=== PATIENT | female | born 1960 | race Hispanic/Latino ===

== ENCOUNTER 2016-11-29 14:35 | Emergency (ER) | payer OTHER ==
[2016-11-29 14:36] VITALS: BMI 33.0
[2016-11-29 14:56] VITALS: RESP 18; TEMP 97.7
--- NOTE | 2016-11-29 15:05 | ED PDOC ---
"Arrival/HPI <Perla Jaimes - Last Filed: 11/29/16 21:17> - General Historian: Patient <Shon Reece - Last Filed: 12/02/16 01:19> - General Chief Complaint: Back Pain Time Seen by Provider: 11/29/16 14:56 - History of Present Illness Narrative History of Present Illness (Text): 11/29/16 14:57 55 y/o female, pmh including htn/breast cancer, post menopausal, allergic to macrolide and flagyl, c/o lower back pain x 3 days. Pt. has lower back pain, aggravated by movement, associated with the suprapubic pressure, +urinary frequency/urgency, no vaginal bleeding or discharge, nonradiating back pain, no urinary or bowel incontinence or retention, no flank pain, no fever or chills, no nausea or vomiting, no rash, no other medical or psychological complaints. (Shon Reece) Past Medical History - Provider Review Nursing Documentation Reviewed: Yes - Infectious Disease Hx of Infectious Diseases: None - Tetanus Immunization Tetanus Immunization: Unknown - Cardiac Hx Cardiac Disorders: Yes (mitral valve regurgitation) Hx Heart Murmur: Yes Hx Hypertension: Yes - Neurological Hx Paralysis: No - Hematological/Oncological Hx Cancer: Yes (Right Breast) - Musculoskeletal/Rheumatological Hx Falls: No - Psychiatric Hx Anxiety: Yes Hx Substance Use: No - Surgical History Hx Appendectomy: Yes - Anesthesia Hx Anesthesia Reactions: No Hx Malignant Hyperthermia: No - Suicidal Assessment Feels Threatened In Home Enviroment: No <Shon Reece - Last Filed: 12/02/16 01:19> Family/Social History - Physician Review Nursing Documentation Reviewed: Yes Family/Social History: Unknown Family HX Smoking Status: Former Smoker Hx Alcohol Use: No Hx Substance Use: No Hx Substance Use Treatment: No <Shon Reece - Last Filed: 12/02/16 01:19> Allergies/Home Meds <Perla Jaimes - Last Filed: 11/29/16 21:17> <Shon Reece - Last Filed: 12/02/16 01:19> Allergies/Adverse Reactions: Allergies azithromycin Allergy (Verified 11/29/16 14:56) ITCHING metronidazole [From Flagyl] Allergy (Verified 11/29/16 14:56) ANAPHYLAXIS Home Medications: Home Meds Medication Instructions Recorded Confirmed Alprazolam [Xanax] 0.25 mg PO QID 12/26/11 05/13/16 Valsartan [Diovan] 80 mg PO DAILY 05/23/12 05/13/16 Metoprolol Succinate 25 mg PO QAM 07/14/13 05/13/16 Loperamide Hydrochloride [Imodium] 3 cap PO DAILY 11/03/13 05/13/16 Review of Systems - Review of Systems Constitutional: absent: Fatigue, Fevers Eyes: absent: Vision Changes ENT: absent: Hearing Changes Respiratory: absent: SOB, Cough, Sputum Cardiovascular: absent: Chest Pain Gastrointestinal: absent: Abdominal Pain, Nausea, Vomiting Genitourinary Female: Frequency. absent: Dysuria, Vaginal Bleeding, Vaginal Discharge Musculoskeletal: Back Pain. absent: Arthralgias, Neck Pain, Joint Swelling, Myalgias Neurological: absent: Headache, Dizziness, Focal Weakness, Gait Changes, Speech Changes, Facial Droop, Disequilibrium, Seizure Psychiatric: absent: Anxiety, Depression, Suicidal Ideation <Shon Reece Q - Last Filed: 12/02/16 01:19> Physical Exam Vital Signs Reviewed: Yes Temperature: Afebrile Blood Pressure: Normal Pulse: Regular Respiratory Rate: Normal Appearance: Positive for: Well-Appearing, Non-Toxic, Comfortable Pain Distress: Moderate Mental Status: Positive for: Alert and Oriented X 3 - Systems Exam Head: Present: Atraumatic, Normocephalic Pupils: Present: PERRL Extroacular Muscles: Present: EOMI Conjunctiva: Present: Normal Mouth: Present: Moist Mucous Membranes Neck: Present: Normal Range of Motion Respiratory/Chest: Present: Clear to Auscultation, Good Air Exchange. No: Respiratory Distress, Accessory Muscle Use Cardiovascular: Present: Regular Rate and Rhythm, Normal S1, S2. No: Murmurs Abdomen: Present: Normal Bowel Sounds. No: Tenderness, Distention, Peritoneal Signs Back: Present: Normal Inspection, Paraspinal Tenderness (+ttp on the bilateral paraspinal lumbar region, no rash). No: CVA Tenderness, Midline Tenderness, Pain with Leg Raise Upper Extremity: Present: Normal Inspection. No: Cyanosis, Edema Lower Extremity: Present: Normal Inspection. No: Edema Neurological: Present: GCS=15, Speech Normal, Motor Func Grossly Intact, Gait Normal, Memory Normal Skin: Present: Warm, Dry, Normal Color. No: Rashes Psychiatric: Present: Alert, Oriented x 3, Normal Insight, Normal Concentration <Shon Reece - Last Filed: 12/02/16 01:19> Vital Signs Temp Pulse Resp BP Pulse Ox 11/29/16 21:15 64 18 123/84 100 11/29/16 18:36 62 18 130/69 99 11/29/16 16:35 64 18 132/76 99 11/29/16 15:30 62 18 134/81 99 11/29/16 14:50 97.7 F 62 18 134/81 97 Medical Decision Making <Perla Jaimes - Last Filed: 11/29/16 21:17> - Lab Interpretations I have reviewed the lab results: Yes Interpretation: No clinic. lab abnormalty - RAD Interpretation Crime Investigator Special Agent: Radiologist <Shon Reece - Last Filed: 12/02/16 01:19> ED Course and Treatment: 11/29/16 21:17 Case d/w Dr. Betancourt, who said to have the patient f/u within a week. (Perla Jaimes) 11/29/16 15:08 -labs/ua -IVF/toradol -there is no signs or symptoms of the cauda equina syndrome -observe and reassess 11/29/16 16:27 -Labs are non-significant -UA show no UTI but the patient stated that this feels like her usual UTI and stated that the initial UA is usually negative, I will cover with the macrobid. -Pt. stated that she is not sexually active and refused prophylatic treatment, gc/chlamydia test added. -Transvaginal sonogram and pelvic sonogram added. -CT abdomen/pelvic/Lumbar CT added to rule out lesion/mass due to the history of breast cancer. -Pain well control with the IV toradol, will add lidoderm 11/29/16 19:48 -Pt. refused transvaginal sonogram, no pelvic pain, stated that her bilateral ovaries has been damaged by the previous chemotherapy -Pending CT abdomen and pelvis. 11/29/16 20:40 -CT abdomen and pelvis show lytic lesion on the L1 and L4 with lytic lesion with endplate fracture which likely means metasis. I explained all labs/ sonogram results and CT abdomen/pelvis and Lumbar spine with the patient which I expressed my concerning about the spreading of the breast cancer which she will need to be follow up as soon as possible including PET scan. I offered the patient admission for inpatient work up but the patient declined which she request antibiotic for her UTI and outpatient follow up with her own pmd Dr. Noe. Dr. Jaimes awared of the case/labs and radiology studies including the discussion which he spoke to the patient as well. -Discharge home with lidoderm patch, pyridium, macrobid, bed rest, YOU NEED TO FOLLOW UP WITH YOUR OWN PMD AND ONCOLOGIST FOR PET SCAN INCLUDING FURTHER EVALUATION OF YOUR BACK PAIN within 2 days, return to the ER for any new or worsening signs or symptoms. (Shon Reece) - Lab Interpretations Microbiology Results: Microbiology Results 11/29/16 19:40 Urine Urine Culture - Final No Growth (<1,000 CFU/ML) Lab Results: 11/29/16 15:50 11/29/16 15:50 Lab Results 11/29/16 15:50: WBC 6.4, RBC 4.38, Hgb 13.3, Hct 39.1, MCV 89.3, MCH 30.4, MCHC 34.0, RDW 13.6, Plt Count 205, MPV 11.5 H, Gran % 56.7, Lymph % (Auto) 32.8, [place] % (Auto) 8.3 H, Eos % (Auto) 1.9, Baso % (Auto) 0.3, Gran # 3.63, Lymph # 2.1, [place] # 0.5, Eos # 0.1, Baso # 0.02, Sodium 139, Potassium 4.3, Chloride 103 , Carbon Dioxide 24, Anion Gap 16, BUN 21, Creatinine 0.8, Est GFR ( Amer ) > 60, Est GFR (Non-Af Amer) > 60, Random Glucose 87, Calcium 9.7, Total Bilirubin 0.5, AST 38, ALT 44, Alkaline Phosphatase 172 H, Total Protein 8.7 H, Albumin 4.4, Globulin 4.3, Albumin/Globulin Ratio 1.0 L 11/29/16 15:20: Urine Color Yellow, Urine Appearance Clear, Urine pH 6.0, Ur Specific [place] >= 1.030, Urine Protein Negative, Urine Glucose (UA) Negative, Urine Ketones Negative, Urine Blood Trace-intact H, Urine Nitrate Negative, Urine Bilirubin Negative, Urine Urobilinogen 0.2, Ur Leukocyte Esterase Negative , Urine RBC 0 - 2, Urine WBC Negative, Ur Epithelial Cells 6 - 8, Urine Bacteria Trace, Urine HCG, Qual Negative - RAD Interpretation Radiology Orders: 11/29/16 16:18 PELVIS ULTRASOUND [US] Stat 11/29/16 16:49 LUMBAR SPINE W/O CONTRAST [CT] Stat 11/29/16 18:43 ABD & PELVIS PO CONTRAST ONLY [CT] Stat Sonogram: HISTORY: urinary frequency/urgency COMPARISON: CT abdomen and pelvis without contrast performed 11/08/13 TECHNIQUE: Transabdominal pelvic ultrasound. Patient declined transvaginal pelvic ultrasound. FINDINGS: UTERUS: Measures 5.7 x 2.8 x 3.9 cm. Anteverted. ENDOMETRIUM: Measures 4 mm in diameter. CERVIX: No cervical abnormality identified. RIGHT OVARY: Not visualized. LEFT OVARY: Not visualized. FREE FLUID: No significant free fluid noted. OTHER FINDINGS: Prevoid urinary bladder measures approximately 4.1 x 4.6 x 7.5 cm, calculated volume 73.6 mL. Postvoid urinary bladder measures approximately 1.8 x 4.1 x 6.0 cm, calculated volume 22.5 mL. IMPRESSION: Bilateral ovaries were not visualized. Prevoid urinary bladder 73.6 mL. Postvoid urinary bladder 22.5 mL. Please note patient declined transvaginal portion of the study. ABDOMEN: Liver: Unremarkable. Gallbladder and bile ducts: Unremarkable. No calcified stones. No ductal dilation. Pancreas: Unremarkable. No mass. No ductal dilation. Spleen: Unremarkable. No splenomegaly. Adrenals: Unremarkable. No mass. Kidneys and ureters: Unremarkable. No solid mass. No hydronephrosis. Stomach and bowel: No bowel obstruction. No diverticulitis. Appendix: No findings to suggest acute appendicitis. ALEJANDRA KRISHNAN | Preliminary Radiology Report PHOTOGRAMMETRIC TECHNICIAN (QA) DISCREPANCY? If there is a discrepancy between the preliminary and final interpretation, please notify [facility] via [email or web address]. If you do not have access to our QA portal, call our QA team at [phone] CONFIDENTIALITY STATEMENT This report is intended only for the use of the referring physician, and only in accordance with law, If you received this in error, call [phone] Page 2 of 2 PELVIS: Bladder: Unremarkable. No mass. Reproductive: Unremarkable as visualized. ABDOMEN and PELVIS: Intraperitoneal space: Unremarkable. No free air. No significant fluid collection. Bones/joints: There is a lytic lesion involving a large portion of the L1 vertebral body eccentrically toward the left with a defect in the cortex of the superior and inferior endplates suggesting pathologic fractures. The lesion extends through the left pedicle into the articular pillar , lamina and probably the spinous process. There are areas of cortical violation relating to the lesion. Irregular lucency in the right anterolateral L4 vertebral body with areas of cortical thinning adjacent to the lesion and a focus of lucency posteriorly in the left inferior pubic ramus. Soft tissues: Small bilateral fat-containing inguinal hernias. Vasculature: Mild aortoiliac calcified plaque. No aneurysm. Lymph nodes: Unremarkable. No enlarged lymph nodes. IMPRESSION: L1 lytic lesion including pathologic fractures in the superior and inferior endplates compatible with a metastatic implant with additional lesions at L4 and the left inferior near pubic ramus also likely representing metastases. Small bilateral fat-containing inguinal hernias. Thank you for allowing us to participate in the care of your patient. Dictated and Authenticated by: Deonte Hernández MD 11/29/2016 8:04 PM Eastern Time ([place] & [place] (Shon Reece) - Medication Orders Current Medication Orders: Discontinued Medications Famotidine (Pepcid) 20 mg PO STAT STA Stop: 11/29/16 20:43 Last Admin: 11/29/16 21:28 Dose: 20 MG Sodium Chloride (Sodium Chloride 0.9%) 1,000 mls @ 250 mls/hr IV .Q4H BRENDAN Last Admin: 11/29/16 16:00 Dose: 250 MLS/HR eMAR Start Stop Document 11/29/16 16:00 EQ (Rec: 11/29/16 16:00 EQ [facility] [id number][place] Intravenous Solution Start Date 11/29/16 Start Time 16:00 Iohexol (Omnipaque 240 (50 Ml)) Confirm Administered Dose 50 ml .ROUTE .STK-MED ONE Stop: 11/29/16 17:16 Ketorolac Tromethamine (Toradol) 30 mg IVP STAT STA Stop: 11/29/16 15:06 Last Admin: 11/29/16 16:00 Dose: 30 MG IVP Administration Document 11/29/16 16:00 EQ (Rec: 11/29/16 16:00 EQ [facility] [id number]) Charges for Administration # of IVP Administrations 1 Lidocaine (Lidoderm) 1 ea TD STAT STA Stop: 11/29/16 16:36 Last Admin: 11/29/16 18:39 Dose: 1 EA MAR Transdermal Patch Site Document 11/29/16 18:39 EQ (Rec: 11/29/16 18:39 EQ [facility] [id number]) Transdermal Patch Site Transdermal Patch Site Left Lower Back Nitrofurantoin Macrocrystals (Macrobid) 100 mg PO STAT STA Stop: 11/29/16 20:47 Last Admin: 11/29/16 21:28 Dose: 100 MG Ondansetron HCl (Zofran Inj) 4 mg IVP STAT STA Stop: 11/29/16 18:34 Last Admin: 11/29/16 19:13 Dose: 4 MG IVP Administration Document 11/29/16 19:13 EQ (Rec: 11/29/16 19:13 EQ [facility] [id number]) Charges for Administration # of IVP Administrations 1 Ondansetron HCl (Zofran Inj) Confirm Administered Dose 4 mg .ROUTE .STK-MED ONE Stop: 11/29/16 18:36 Last Admin: 11/29/16 19:13 Dose: - PA / LAUNCH STEWARD / Resident Statement ELTON has reviewed & agrees with the documentation as recorded. ELTON has examined the patient and agrees with the treatment plan. <Perla Jaimes - Last Filed: 11/29/16 21:17> - PA / LAUNCH STEWARD / Resident Statement ELTON has reviewed & agrees with the documentation as recorded. <Shon Reece - Last Filed: 12/02/16 01:19> Disposition/Present on Arrival <Perla Jaimes - Last Filed: 11/29/16 21:17> - Present on Arrival Any Indicators Present on Arrival: No History of DVT/PE: No History of Uncontrolled Diabetes: No Urinary Catheter: No History of Decub. Ulcer: No History Surgical Site Infection Following: None - Disposition Have Diagnosis and Disposition been Completed?: Yes Disposition Time: 15:08 Patient Plan: Discharge <Shon Reece - Last Filed: 12/02/16 01:19> - Disposition Diagnosis: Lower back pain, Pathological fracture Disposition: HOME/ ROUTINE Condition: GOOD Additional Instructions: Discharge home with lidoderm patch, pyridium, macrobid, bed rest, YOU NEED TO FOLLOW UP WITH YOUR OWN PMD AND ONCOLOGIST FOR PET SCAN INCLUDING FURTHER EVALUATION OF YOUR BACK PAIN within 2 days, return to the ER for any new or worsening signs or symptoms. Prescriptions: Lidocaine 5% [Lidoderm] 1 patch TOP DAILY PRN #14 patch PRN Reason: Other Nitrofurantoin Macrocrystals [Macrobid] 100 mg PO BID #14 cap Phenazopyridine HCl [Pyridium] 200 mg PO TID #6 tablet Referrals: Barry Noe MD [Primary Care Provider] - Follow up with primary Forms: WORK NOTE"
[2016-11-29] MEDS ORDERED: Sodium Chloride 0.9% 1,000 ML IV SCH (15:15)
[2016-11-29 15:44] LABS: URINE BILIRUBIN NEGATIVE (NEGATIVE); URINE BLOOD TRACE-INTACT (NEGATIVE); URINE GLUCOSE (UA) NEGATIVE (NEGATIVE); URINE KETONE NEGATIVE (NEGATIVE); URINE LEUKOCYTE ESTERASE NEGATIVE Leu/uL (NEGATIVE); URINE PROTEIN NEGATIVE mg/dL (<30 mg/dL); URINE UROBILINOGEN 0.2 E.U./dL (<1 E.U./dL)
[2016-11-29 15:45] LABS: URINE APPEARANCE CLEAR (CLEAR); URINE COLOR YELLOW (YELLOW)
[2016-11-29 15:54] LABS: URINE BACTERIA TRACE (NEG); URINE RBC 0 - 2 /hpf (0-2); URINE WBC NEGATIVE /hpf (0-6)
[2016-11-29 15:57] LABS: ADD MANUAL DIFF? NO
[2016-11-29 16:00] LABS: BASO # 0.02 K/mm3 (0.0-2.0); BASO % 0.3 % (0.0-3.0); EOS # 0.1 (0.0-0.7); EOS % 1.9 % (1.5-5.0); GRAN # 3.63 (1.4-6.5); GRAN % 56.7 % (50.0-68.0); HEMATOCRIT 39.1 % (36.0-48.0); LYMPH # 2.1 (1.2-3.4); LYMPH % 32.8 % (22.0-35.0); MEAN CELL VOLUME 89.3 fL (80.0-105.0); MEAN CORPUSCULAR HEMOGLOBIN 30.4 pg (25.0-35.0); MEAN PLATELET VOLUME 11.5 fl (7.0-11.0); MONO # 0.5 (0.1-0.6); MONO % 8.3 % (1.0-6.0); PLATELET COUNT 205 10^3/uL (120.0-450.0); RED CELL DISTRIBUTION WIDTH 13.6 % (11.5-14.5); WHITE BLOOD COUNT 6.4 10^3/ul (4.5-11.0)
[2016-11-29 16:12] LABS: ALKALINE PHOSPHATASE 172 U/L (38-133); ALT/SGPT 44 U/L (7-56); AST/SGOT 38 U/L (15-39); BILIRUBIN,TOTAL 0.5 mg/dL (0.2-1.3); BLOOD UREA NITROGEN 21 mg/dL (7-21); CALCIUM 9.7 mg/dL (8.4-10.5); CARBON DIOXIDE 24 mmol/L (21-33); CHLORIDE 103 mmol/L (98-107); GFR AFRICAN-AMERICAN > 60; GLUCOSE,RANDOM 87 mg/dL (70-110); POTASSIUM 4.3 mmol/L (3.6-5.0); SODIUM 139 mmol/L (132-148); TOTAL PROTEIN 8.7 g/dL (5.8-8.3)
[2016-11-29] MEDS ORDERED: Lidocaine 5% Patch TD STA (16:35)
[2016-11-29] MEDS ORDERED: Iohexol 240 (50 ml) ONE (17:15)
--- NOTE | 2016-11-29 19:02 | US ---
HISTORY: urinary frequency/urgency COMPARISON: CT abdomen and pelvis without contrast performed 11/08/13 TECHNIQUE: Transabdominal pelvic ultrasound. Patient declined transvaginal pelvic ultrasound. FINDINGS: UTERUS: Measures 5.7 x 2.8 x 3.9 cm. Anteverted. ENDOMETRIUM: Measures 4 mm in diameter. CERVIX: No cervical abnormality identified. RIGHT OVARY: Not visualized. LEFT OVARY: Not visualized. FREE FLUID: No significant free fluid noted. OTHER FINDINGS: Prevoid urinary bladder measures approximately 4.1 x 4.6 x 7.5 cm, calculated volume 73.6 mL. Postvoid urinary bladder measures approximately 1.8 x 4.1 x 6.0 cm, calculated volume 22.5 mL. IMPRESSION: Bilateral ovaries were not visualized. Prevoid urinary bladder 73.6 mL. Postvoid urinary bladder 22.5 mL. Please note patient declined transvaginal portion of the study.
[2016-11-29 21:16] VITALS: BP 123/84; PULSE 64; O2SAT 100
--- NOTE | 2016-11-30 07:23 | CT ---
PROCEDURE: CT Lumbar Spine without contrast HISTORY: back pain, urinary frequency, history of breast cancer. COMPARISON: None. TECHNIQUE: Axial computed tomography images were obtained of the lumbar spine without the use of intravenous contrast. Coronal and sagittal reformatted images were created and reviewed. Radiation dose: Total exam DLP = 636.85 mGy-cm. This CT exam was performed using one or more of the following dose reduction techniques: Automated exposure control, adjustment of the mA and/or kV according to patient size, and/or use of iterative reconstruction technique. FINDINGS: VERTEBRAE: Lytic disease affecting L1 and L4 vertebral bodies. Disease at L1 extends to the left lamina. DISCS/SPINAL CANAL/NEURAL FORAMINA: L1-2: Unremarkable. L2-3: Unremarkable. L3-4: Unremarkable. L4-5: Unremarkable. L5-S1: Unremarkable. PARASPINAL SOFT TISSUES: Unremarkable. OTHER FINDINGS: None. IMPRESSION: Lytic metastatic disease L1 including laminar components. L4 metastatic lesion confined to the vertebral body. Concordant results (preliminary interpretation) provided by [facility] [employer] [facility] [employer]. Procedure Completed: 19:08 Preliminary ([facility]) Report: Dictated and Authenticated: 20:11. Final Interpretation: 07:21. November 30, 2016.
--- NOTE | 2016-11-30 07:28 | CT ---
PROCEDURE: CT Abdomen and Pelvis without intravenous contrast HISTORY: lower back pain COMPARISON: 11/08/2013. TECHNIQUE: Oral contrast only. Radiation dose: Total exam DLP = 678.05 mGy-cm. This CT exam was performed using one or more of the following dose reduction techniques: Automated exposure control, adjustment of the mA and/or kV according to patient size, and/or use of iterative reconstruction technique. FINDINGS: LOWER THORAX: Unremarkable. LIVER: Unremarkable. No gross lesion or ductal dilatation. GALLBLADDER AND BILE DUCTS: Unremarkable. PANCREAS: Unremarkable. No gross lesion or ductal dilatation. SPLEEN: Unremarkable. ADRENALS: Unremarkable. No mass. KIDNEYS AND URETERS: Unremarkable. No hydronephrosis. No solid mass. VASCULATURE: Unremarkable. No aortic aneurysm. BOWEL: Unremarkable. No obstruction. No gross mural thickening. APPENDIX: Unremarkable. Normal appendix. PERITONEUM: Unremarkable. No free fluid. No free air. LYMPH NODES: Unremarkable. No enlarged lymph nodes. BLADDER: Unremarkable. REPRODUCTIVE: Unremarkable. BONES: Lytic metastatic disease L1 and L4 vertebral bodies. Additional abnormalities identified left ischium. OTHER FINDINGS: None. IMPRESSION: Lytic metastatic disease L1, L4 and the ischium. Otherwise, Unremarkable non contrast enhanced CT of the abdomen and pelvis. Concordant results (preliminary interpretation) provided by [facility]. Procedure Completed: 19:12. Preliminary ([facility]) Report: Dictated and Authenticated: 20:04. Final Interpretation: 07:26. November 30, 2016.
== END 2016-11-29 21:48 | disposition home or self-care (01) ==
LOC: ED 14:35
DX: M54.5 Low back pain (principal); M84.48XA Pathological fracture, other site, initial encounter for fracture; Z87.891 Personal history of nicotine dependence
CPT/HCPCS: 72131; 74176; 76856; 80053; 81001; 84703; 85025; 87086; 87491; 87591; 96374; 96375; 99284; J1885; J2405; J7040; Q9966

== ENCOUNTER 2017-11-12 10:34 | Emergency (ER) | payer MEDICAID ==
[2017-11-12 10:35] VITALS: BMI 33.0
[2017-11-12 11:02] VITALS: TEMP 99.2
--- NOTE | 2017-11-12 11:14 | ED PDOC ---
Arrival/HPI - General Chief Complaint: Cough, Cold, Congestion Time Seen by Provider: 11/12/17 10:36 Historian: Patient - History of Present Illness Time/Duration: Other (3 days) Symptom Onset: Gradual Symptom Course: Unchanged Severity Level: Moderate Activities at Onset: Rest Associated Symptoms (Text): 11/12/17 11:12 Patient complains of a three-day history of a cough productive of white sputum. Fever to 101. No dyspnea. No chest pain. No URI symptoms. She been on doxycycline for 2 days with no improvement. History of metastatic breast cancer on chemotherapy. Her last white count on October 30 was 2.1. Past Medical History - Infectious Disease Hx of Infectious Diseases: None - Tetanus Immunization Tetanus Immunization: Unknown - Reproductive Menopause: No - Cardiac Hx Cardiac Disorders: Yes (mitral valve regurgitation) Hx Heart Murmur: Yes Hx Hypertension: Yes - Neurological Hx Paralysis: No - Hematological/Oncological Hx Cancer: Yes (Right Breast) Other/Comment: mets to spine - Musculoskeletal/Rheumatological Hx Falls: No - Psychiatric Hx Anxiety: Yes Hx Substance Use: No - Surgical History Hx Appendectomy: Yes - Anesthesia Hx Anesthesia Reactions: No Hx Malignant Hyperthermia: No - Suicidal Assessment Feels Threatened In Home Enviroment: No Family/Social History - Physician Review Nursing Documentation Reviewed: Yes Family/Social History: Unknown Family HX Smoking Status: Former Smoker (Quit smoking 5 years ago) Hx Alcohol Use: No Hx Substance Use: No Hx Substance Use Treatment: No Allergies/Home Meds Allergies/Adverse Reactions: Allergies azithromycin Allergy (Verified 11/12/17 10:54) ITCHING metronidazole [From Flagyl] Allergy (Verified 11/12/17 10:54) ANAPHYLAXIS Home Medications: Home Meds Medication Instructions Recorded Confirmed Alprazolam [Xanax] 0.25 mg PO QID 12/26/11 11/12/17 Dicyclomine [Dicyclomine HCl] 0 mg PO DAILY 11/12/17 11/12/17 Doxycycline Hyclate [Doryx] 100 mg PO BID 11/12/17 11/12/17 Fulvestrant [Faslodex] 0 mg IM 11/12/17 Loperamide HCl [Loperamide HCl] 6 mg PO DAILY 11/12/17 11/12/17 Loratadine [Claritin] 10 mg PO PRN 11/12/17 11/12/17 Meclizine [Antivert] 12.5 mg PO PRN PRN 11/12/17 11/12/17 Metoprolol Succinate [Toprol XL] 25 mg PO DAILY 11/12/17 11/12/17 Omeprazole 40 mg PO DAILY 11/12/17 11/12/17 Ondansetron HCl [Zofran] 4 mg PO PRN PRN 11/12/17 11/12/17 Palbociclib [Ibrance] 75 mg PO 11/12/17 Valsartan [Diovan] 80 mg PO DAILY 11/12/17 11/12/17 traMADol [Ultram] 50 mg PO TID PRN 11/12/17 11/12/17 Review of Systems - Physician Review All systems were reviewed & negative as marked: Yes - Review of Systems Constitutional: Fevers. absent: Fatigue Respiratory: Cough, Sputum. absent: SOB, Wheezing Cardiovascular: absent: Chest Pain, Palpitations, Syncope Gastrointestinal: absent: Abdominal Pain, Diarrhea, Vomiting Genitourinary Female: absent: Dysuria, Frequency, Hematuria Neurological: absent: Headache, Dizziness, Focal Weakness Physical Exam Vital Signs Temp Pulse Resp BP Pulse Ox 11/12/17 12:41 81 18 132/80 99 11/12/17 10:49 99.2 F 86 20 130/82 97 Temperature: Afebrile Blood Pressure: Normal Pulse: Regular Respiratory Rate: Normal Appearance: Positive for: Well-Appearing, Non-Toxic, Comfortable Pain Distress: None Mental Status: Positive for: Alert and Oriented X 3 - Systems Exam Head: Present: Atraumatic, Normocephalic Pupils: Present: PERRL Extroacular Muscles: Present: EOMI Conjunctiva: Present: Normal Ears: Present: NORMAL TM, Normal Canal. No: Erythema Mouth: Present: Moist Mucous Membranes Pharnyx: No: ERYTHEMA, EXUDATE, TONSILS ENLARGED Neck: Present: Normal Range of Motion Respiratory/Chest: Present: Clear to Auscultation, Good Air Exchange, Decreased Breath Sounds. No: Respiratory Distress, Accessory Muscle Use, Wheezes, Rales, Retracting, Rhonchi, Tachypneic, Tender to Palpation Cardiovascular: Present: Regular Rate and Rhythm, Normal S1, S2. No: Murmurs Abdomen: Present: Normal Bowel Sounds. No: Tenderness, Distention, Peritoneal Signs, Rebound, Guarding Upper Extremity: Present: Normal Inspection. No: Cyanosis, Edema Lower Extremity: Present: Normal Inspection. No: Edema Neurological: Present: GCS=15, CN II-XII Intact, Speech Normal, Motor Func Grossly Intact Skin: Present: Warm, Dry, Normal Color. No: Rashes Psychiatric: Present: Alert, Oriented x 3, Normal Insight, Normal Concentration Medical Decision Making ED Course and Treatment: 11/12/17 11:34 EKG shows normal sinus rhythm rate approximately [address] or T-wave changes 11/12/17 13:50 Lab was unable to draw the patient's hemolyzed blood work. Her white count is 2.4. She is afebrile here. Her chest x-ray shows no infiltrate. She was started on doxycycline 2 days ago. We will continue the doxycycline and add Tessalon. Follow-up with . Follow up in ER as needed. - Lab Interpretations Lab Results: 11/12/17 11:15 Lab Results 11/12/17 11:15: pO2 191 H, VBG pH 7.39, VBG pCO2 40.0, VBG HCO3 24.2, VBG Total CO2 25.4, VBG O2 Sat (Calc) 99.2 H, VBG Base Excess -0.7 L, VBG Potassium 4.4, Sodium 141.0, Chloride 111.0 H, Glucose 97, Lactate 1.3, FiO2 21.0, Venous Blood Potassium 4.4 11/12/17 11:15: PT 11.4, INR 0.99, APTT 28.0 11/12/17 11:15: WBC 2.4 L* D, RBC 3.28 L, Hgb 10.9 L, Hct 32.0 L, MCV 97.6, MCH 33.2, MCHC 34.1, RDW 13.6, Plt Count 192, MPV 10.5, Gran % 72.3 H, Lymph % (Auto ) 20.7 L, Liberty % (Auto) 3.7, Eos % (Auto) 2.1, Baso % (Auto) 1.2, Gran # 1.75, Lymph # (Auto) 0.5 L, [place] # (Auto) 0.1, Eos # (Auto) 0.1, Baso # (Auto) 0.03 - RAD Interpretation Radiology Orders: 11/12/17 11:10 CHEST PORTABLE [RAD] Stat Chest 1 view shows no infiltrate effusion or cardiomegaly. Center Sales And Service Associate: ED Physician Disposition/Present on Arrival - Present on Arrival Any Indicators Present on Arrival: No History of DVT/PE: No History of Uncontrolled Diabetes: No Urinary Catheter: No History of Decub. Ulcer: No History Surgical Site Infection Following: None - Disposition Have Diagnosis and Disposition been Completed?: Yes Diagnosis: Bronchitis Disposition: HOME/ ROUTINE Disposition Time: 13:51 Patient Plan: Discharge Condition: GOOD Discharge Instructions (ExitCare): Acute Bronchitis Additional Instructions: Symptomatic treatment. Tylenol or Advil as directed on bottle as needed. Follow- up with PMD. Follow-up in the ER as needed. Continue doxycycline. Prescriptions: Benzonatate [Tessalon Perles] 100 mg PO Q8 #30 sgl Forms: [employer] (Greenlandic)
[2017-11-12 11:46] LABS: VENOUS BLOOD GAS BASE EXCESS -0.7 mmol/L (0.0-2.0); VENOUS BLOOD GAS PO2 191 mm/Hg (30-55); VENOUS BLOOD PH 7.39 (7.32-7.43)
[2017-11-12 11:49] LABS: BASO # 0.03 K/mm3 (0.0-2.0); BASO % 1.2 % (0.0-3.0); EOS # 0.1 (0.0-0.7); EOS % 2.1 % (1.5-5.0); GRAN # 1.75 (1.4-6.5); GRAN % 72.3 % (50.0-68.0); HEMOGLOBIN 10.9 g/dL (12.0-16.0); LYMPH # 0.5 (1.2-3.4); LYMPH % 20.7 % (22.0-35.0); MEAN CELL VOLUME 97.6 fl (80.0-105.0); MEAN CORPUSCULAR HEMOGLOBIN 33.2 pg (25.0-35.0); MEAN CORPUSCULAR HGB CONC 34.1 g/dl (31.0-37.0); MEAN PLATELET VOLUME 10.5 fl (7.0-11.0); MONO # 0.1 (0.1-0.6); MONO % 3.7 % (1.0-6.0); RBC 3.28 10^6/uL (3.5-6.1); RED CELL DISTRIBUTION WIDTH 13.6 % (11.5-14.5)
[2017-11-12 11:52] LABS: WHITE BLOOD COUNT 2.4 10^3/ul (4.5-11.0)
[2017-11-12 12:23] LABS: INR 0.99 (0.93-1.08); PROTHROMBIN TIME 11.4 SECONDS (9.4-12.5)
--- NOTE | 2017-11-12 12:25 | CARD ---
APPROVED REPORT EKG Measurement Heart [id number] <Conclusion> Normal sinus rhythm Normal ECG
--- NOTE | 2017-11-12 12:29 | RAD ---
HISTORY: Sepsis Patient COMPARISON: 05/13/2016 FINDINGS: LUNGS: No active pulmonary disease. PLEURA: No significant pleural effusion identified, no pneumothorax apparent. CARDIOVASCULAR: Normal. OSSEOUS STRUCTURES: No significant abnormalities. VISUALIZED UPPER ABDOMEN: Normal. OTHER FINDINGS: None. IMPRESSION: No active disease.
[2017-11-12 12:42] VITALS: O2SAT 99
[2017-11-12 14:08] VITALS: BP 129/78; PULSE 75; RESP 17
== END 2017-11-12 14:08 | disposition home or self-care (01) ==
LOC: ED 10:34
DX: J40 Bronchitis, not specified as acute or chronic (principal); I10 Essential (primary) hypertension; Z87.891 Personal history of nicotine dependence

== ENCOUNTER 2018-08-29 23:34 | Emergency (ER) | payer MEDICAID ==
[2018-08-29 23:43] VITALS: BMI 35.5
[2018-08-29] MEDS ORDERED: Sodium Chloride 0.9% 1,000 ML IV STA (23:47)
[2018-08-29] MEDS ORDERED: DiphenhydrAMINE 50 mg/ml Inj IVP ONE (23:47)
--- NOTE | 2018-08-29 23:57 | ED PDOC ---
Arrival/HPI - General Chief Complaint: Headache Time Seen by Provider: 08/29/18 23:41 Historian: Patient - History of Present Illness Narrative History of Present Illness (Text): 08/29/18 23:45 Huma Tao is a 57 year old female, whose past medical history includes breast cancer, hypertension, IBS, and spastic colon, who presents to the emergency department complaining of headache. Patient states she has been experiencing a sinus headache, nausea, and vomiting since earlier this afternoon. Patient reports she took 2 tablets of Zofran 4mg today with no significant relief. The patient denies any fever, chills, chest pain, shortness of breath, diarrhea, urinary symptoms, back pain, neck pain, dizziness, or any other complaints. Symptom Onset: Gradual Symptom Course: Unchanged Activities at Onset: Light Context: Home Past Medical History - Provider Review Nursing Documentation Reviewed: Yes - Infectious Disease Hx of Infectious Diseases: None - Tetanus Immunization Tetanus Immunization: Unknown - Cardiac Hx Cardiac Disorders: Yes (mitral valve regurgitation) Hx Heart Murmur: Yes Hx Hypertension: Yes - Neurological Hx Paralysis: No - Hematological/Oncological Hx Cancer: Yes (Right Breast) Other/Comment: mets to spine - Musculoskeletal/Rheumatological Hx Falls: No Hx Herniated Disk: Yes - Gastrointestinal Other/Comment: IBS. spastic colon. umbilical hernia - Psychiatric Hx Anxiety: Yes Hx Substance Use: No - Surgical History Hx Appendectomy: Yes Hx Section: Yes (x3) - Anesthesia Hx Anesthesia Reactions: No Hx Malignant Hyperthermia: No - Suicidal Assessment Feels Threatened In Home Enviroment: No Family/Social History - Physician Review Nursing Documentation Reviewed: Yes Family/Social History: Unknown Family HX Smoking Status: Former Smoker Hx Alcohol Use: No Hx Substance Use: No Hx Substance Use Treatment: No Allergies/Home Meds Allergies/Adverse Reactions: Allergies azithromycin Allergy (Verified 08/29/18 23:50) ITCHING metronidazole [From Flagyl] Allergy (Verified 08/29/18 23:50) ANAPHYLAXIS Home Medications: Home Meds Medication Instructions Recorded Confirmed Alprazolam [Xanax] 0.25 mg PO QID 12/26/11 11/12/17 Dicyclomine [Dicyclomine HCl] 0 mg PO DAILY 11/12/17 11/12/17 Doxycycline Hyclate [Doryx] 100 mg PO BID 11/12/17 11/12/17 Fulvestrant [Faslodex] 0 mg IM 11/12/17 Loperamide HCl 6 mg PO DAILY 11/12/17 11/12/17 Loratadine [Claritin] 10 mg PO PRN 11/12/17 11/12/17 Meclizine [Antivert] 12.5 mg PO PRN PRN 11/12/17 11/12/17 Metoprolol Succinate XL [Toprol XL] 25 mg PO DAILY 11/12/17 11/12/17 Omeprazole 40 mg PO DAILY 11/12/17 11/12/17 Ondansetron HCl [Zofran] 4 mg PO PRN PRN 11/12/17 11/12/17 Palbociclib [Ibrance] 75 mg PO 11/12/17 Valsartan [Diovan] 80 mg PO DAILY 11/12/17 11/12/17 traMADol [Ultram] 50 mg PO TID PRN 11/12/17 11/12/17 Review of Systems - Physician Review All systems were reviewed & negative as marked: Yes - Review of Systems Constitutional: Normal. absent: Fevers Eyes: Normal ENT: Normal Respiratory: Normal. absent: SOB, Cough Cardiovascular: Normal Gastrointestinal: Nausea, Vomiting Genitourinary Female: Normal. absent: Dysuria, Frequency, Hematuria, Urine Output Changes, Vaginal Discharge Musculoskeletal: Normal. absent: Neck Pain Skin: Normal Neurological: Headache. absent: Dizziness Endocrine: Normal Hemo/Lymphatic: Normal Psychiatric: Normal Physical Exam Vital Signs Reviewed: Yes Temperature: Afebrile Blood Pressure: Normal Pulse: Regular Respiratory Rate: Normal Appearance: Positive for: Well-Appearing, Non-Toxic, Comfortable Pain Distress: None Mental Status: Positive for: Alert and Oriented X 3 - Systems Exam Head: Present: Atraumatic, Normocephalic Pupils: Present: PERRL Extroacular Muscles: Present: EOMI Conjunctiva: Present: Normal Mouth: Present: Moist Mucous Membranes Neck: Present: Normal Range of Motion Respiratory/Chest: Present: Clear to Auscultation, Good Air Exchange. No: Respiratory Distress, Accessory Muscle Use Cardiovascular: Present: Regular Rate and Rhythm, Normal S1, S2. No: Murmurs Abdomen: No: Tenderness, Distention, Peritoneal Signs Back: Present: Normal Inspection Upper Extremity: Present: Normal Inspection. No: Cyanosis, Edema Lower Extremity: Present: Normal Inspection. No: Edema Neurological: Present: GCS=15, CN II-XII Intact, Speech Normal Skin: Present: Warm, Dry, Normal Color. No: Rashes Psychiatric: Present: Alert, Oriented x 3, Normal Insight, Normal Concentration Medical Decision Making ED Course and Treatment: 08/29/18 23:45 Impression: 57 year old female complaining of headache, nausea, and vomiting. Plan: -- CT Head w/o contrast -- Labs, lipase -- IV fluids -- Reglan -- Benadryl -- Reassess and disposition Prior Visits: Notes and results from previous visits were reviewed. Progress Notes: 08/30/18 01:50 CT Head: Normal size of the ventricles and extra-axial spaces for the patient's age. Normal white matter tracts of the supratentorial brain. Normal basal ganglia and thalami. Normal brainstem. Normal cerebellum. There is no demonstrated extra-axial, intraparenchymal, or intraventricular hemorrhage. There are no findings of an acute ischemic infarction. Normal calvarium. There is no demonstrated fracture. Normal soft tissue structures. Normal visualized paranasal sinuses. IMPRESSION: Normal unenhanced CT scan of the brain. Electronically signed on Aug 30, 2018 1:49:45 AM EST by: Queta Crane M.D., Certified by NATHANAEL, FORREST, Neuroradiology 08/30/18 04:42 CT Abdomen and Pelvis: Bilateral basilar atelectatic pulmonary changes. Small sliding hiatal hernia. Enlarged fatty unenhanced liver. Normal gallbladder and extrahepatic biliary system. Normal unenhanced spleen. Normal pancreas. Normal bilateral adrenal glands. Normal size of the right kidney. There is no right renal mass. There are no right renal calculi. There is no right hydronephrosis. Normal visualized right ureter. Normal size of the left kidney. There is no left renal mass. There are no left renal calculi. There is no left hydronephrosis. Normal visualized left ureter. Normal visualized stomach. Normal small intestine. Uncomplicated diverticulosis of the colon. The appendix is visualized and appears normal. There is no demonstrated peritoneal fluid. Normal abdominal aorta. Normal inferior vena cava. Normal retroperitoneum. Normal urinary bladder. There is no pelvic mass lesion or lymphadenopathy. There is no pelvic fluid. Normal abdominal wall. Normal osseous structures. IMPRESSION: No CT evidence of an acute pathology. Electronically signed on Aug 30, 2018 4:41:19 AM EST by: Queta Crane M.D., Certified by NATHANAEL, FORREST, Neuroradiology 08/30/18 04:57 On reevaluation, the patient feels 100% better and is in no acute distress. I have discussed the results and plan with the patient, who expresses understanding. Patient is stable for discharge. Patient was instructed to follow up with physician/clinic in 1-2 days or return if symptoms persist/worsen or new concerning symptoms arise. - Lab Interpretations I have reviewed the lab results: Yes - RAD Interpretation Radiology Orders: 08/29/18 23:48 HEAD W/O CONTRAST [CT] Stat Material Handler Loader: Radiologist - Medication Orders Current Medication Orders: Sodium Chloride (Sodium Chloride 0.9%) 1,000 mls @ 999 mls/hr IV .Q1H1M STA Stop: 08/30/18 00:47 Discontinued Medications Diphenhydramine HCl (Benadryl) 25 mg IVP ONCE ONE Stop: 08/29/18 23:48 Metoclopramide HCl (Reglan) 10 mg IVP ONCE ONE Stop: 08/29/18 23:48 - Scribe Statement The provider has reviewed the documentation as recorded by the Mariah Ruth Provider Scribe Attestation: All medical record entries made by the Scribe were at my direction and personally dictated by me. I have reviewed the chart and agree that the record accurately reflects my personal performance of the history, physical exam, medical decision making, and the department course for this patient. I have also personally directed, reviewed, and agree with the discharge instructions and disposition. Disposition/Present on Arrival - Present on Arrival Any Indicators Present on Arrival: No History of DVT/PE: No History of Uncontrolled Diabetes: No Urinary Catheter: No History of Decub. Ulcer: No History Surgical Site Infection Following: None - Disposition Have Diagnosis and Disposition been Completed?: Yes Diagnosis: Headache, URI (upper respiratory infection), IBS (irritable bowel syndrome) Disposition: HOME/ ROUTINE Disposition Time: 04:51 Patient Plan: Discharge Patient Problems: Current Active Problems Problem Status Onset Headache Acute IBS (irritable bowel syndrome) Acute URI (upper respiratory infection) Acute Condition: GOOD Discharge Instructions (ExitCare): Irritable Bowel Syndrome (DC), Viral Upper Respiratory Infection, Adult (DC), Tension Headache (DC) Additional Instructions: Rest/take meds as prescribed/follow up with your doctor this week Prescriptions: Acetaminophen/Butalbital/Caf [Fioricet] 1 tab PO Q6 PRN #16 tab PRN Reason: Headache Forms: [facility] ([place])
[2018-08-30] VITALS: TEMP 99.4
[2018-08-30 00:45] LABS: HEMOGLOBIN 11.1 g/dL (12.0-16.0); MEAN CORPUSCULAR HEMOGLOBIN 33.6 pg (25.0-35.0); MEAN CORPUSCULAR HGB CONC 33.2 g/dl (31.0-37.0); MEAN PLATELET VOLUME 10.2 fl (7.0-11.0); RBC 3.3 10^6/uL (3.5-6.1); RED CELL DISTRIBUTION WIDTH 13.5 % (11.5-14.5); WHITE BLOOD COUNT 4.3 10^3/uL (4.5-11.0)
[2018-08-30 00:48] LABS: MEAN CELL VOLUME 101.2 fl (80.0-105.0)
[2018-08-30 00:54] LABS: ALB/GLOB RATIO 1.3 (1.1-1.8); ALBUMIN 4.6 g/dL (3.0-4.8); ALT/SGPT 34 U/L (7-56); AST/SGOT 33 U/L (14-36); BLOOD UREA NITROGEN 20 mg/dL (7-21); CALCIUM 10.2 mg/dL (8.4-10.5); GFR NON-AFRICAN AMERICAN > 60; LIPASE 35 U/L (23-300)
[2018-08-30] MEDS ORDERED: Oxycodone/Acetaminophen 5/325 mg Tab PO STA (01:20)
[2018-08-30 05:09] VITALS: BP 116/71; PULSE 69; RESP 16; O2SAT 99
--- NOTE | 2018-08-30 08:34 | CT ---
Date of service: 08/30/2018 PROCEDURE: CT HEAD WITHOUT CONTRAST. HISTORY: headache COMPARISON: None available. TECHNIQUE: Axial computed tomography images were obtained through the head/brain without intravenous contrast. Radiation dose: Total exam DLP = 707.84 mGy-cm. This CT exam was performed using one or more of the following dose reduction techniques: Automated exposure control, adjustment of the mA and/or kV according to patient size, and/or use of iterative reconstruction technique. FINDINGS: Streak artifact limits evaluation of the skull base. HEMORRHAGE: No intracranial hemorrhage. BRAIN: No mass effect or edema. The hernandez-white matter differentiation appears intact. Please note that MRI with diffusion imaging is more sensitive in the detection of acute ischemic event. VENTRICLES: No hydrocephalus. CALVARIUM: Unremarkable. PARANASAL SINUSES: Unremarkable as visualized. No significant inflammatory changes. MASTOID AIR CELLS: Unremarkable as visualized. No inflammatory changes. OTHER FINDINGS: None. IMPRESSION: No acute intracranial pathology identified. Preliminary impression was provided by [facility].
--- NOTE | 2018-08-30 11:41 | CT ---
PROCEDURE: CT Abdomen and Pelvis without Oral or IV contrast. HISTORY: pain COMPARISON: CT abdomen and pelvis without IV contrast performed 11/29/16, lumbar spine with contrast performed 12/29/16 TECHNIQUE: Contiguous axial images of the abdomen and pelvis. No oral or IV contrast administered. Coronal and Sagittal reformats generated and reviewed. Radiation dose: Total exam DLP = 999.94 mGy-cm. This CT exam was performed using one or more of the following dose reduction techniques: Automated exposure control, adjustment of the mA and/or kV according to patient size, and/or use of iterative reconstruction technique. FINDINGS: There is limited evaluation of the solid organs without the administration of IV contrast. LOWER THORAX: Bibasilar atelectasis. There is no visible pleural effusion or pneumothorax. LIVER: Hypoattenuation of the liver compatible with hepatic steatosis. Hypodensity adjacent to the gallbladder presumably due to focal fatty sparing. GALLBLADDER AND BILE DUCTS: Unremarkable. PANCREAS: Atrophy. SPLEEN: Unremarkable. ADRENALS: Unremarkable. KIDNEYS AND URETERS: No hydronephrosis or obstructing renal calculus. BLADDER: The urinary bladder appears unremarkable. REPRODUCTIVE: Uterus is present. APPENDIX: The appendix is not identified. No secondary signs of acute appendicitis. BOWEL: The stomach is nondistended. Lack of oral contrast limits evaluation for bowel pathology. The bowel loops appear within normal limits of caliber without evidence of intestinal obstruction. PERITONEUM: No significant free fluid. No definite free air. LYMPH NODES: No bulky lymphadenopathy identified. VASCULATURE: Atherosclerotic calcifications. No aortic aneurysm. BONES: Osseous demineralization limits evaluation for acute fracture lines. Sclerosis involving the L1 vertebral body and pedicle. Loss of vertebral body height at L3 with evidence of Schmorl's nodes involving the superior endplate of L3 and inferior endplate of L4. Multilevel degenerative changes. Sclerosis involving L4 vertebral body and S1 noted. OTHER FINDINGS: None. IMPRESSION: Hepatic steatosis. Mild increased density adjacent to the gallbladder fossa may be secondary to focal fatty sparing. Region of sclerosis involving L1 vertebral body/pedicle consistent with metastatic disease demonstrated on prior imaging studies. Sclerosis involving portion of L4 and S1 vertebral bodies. Loss of vertebral body height at L3 with evidence of Schmorl's nodes involving the superior endplate of L3 and inferior endplate of L4. Please note nuclear medicine bone scan may be considered for further evaluation if clinical concern for additional osseous metastatic disease. Preliminary impression was provided by [facility]. Study marked for PA review
== END 2018-08-30 05:08 | disposition home or self-care (01) ==
LOC: ED 23:34
DX: R51 Headache (principal); J06.9 Acute upper respiratory infection, unspecified; K58.9 Irritable bowel syndrome, unspecified; I10 Essential (primary) hypertension; Z87.891 Personal history of nicotine dependence
CPT/HCPCS: 70450; 74176; 80053; 83690; 85027; 96361; 96374; 96375; 99285; J1200; J1885; J2765; J7030

== ENCOUNTER 2018-09-20 09:56 | Outpatient (CLI) | payer MEDICAID | END 2018-09-20 09:57 | disposition home or self-care (01) | LOC: RAD 09:56 ==